=== PATIENT | female | born 1965 | race Caucasian/White ===

== ENCOUNTER 2016-04-24 13:57 | Emergency (ER) ==
[2016-04-24 14:04] VITALS: BP 127/68
--- NOTE | 2016-04-24 14:39 | PROVIDER DOCUMENTATION ---
HPI-EENT General - General Chief Complaint: Earache Stated Complaint: EARACHE Time Seen by Provider: 04/24/16 14:19 Source: patient, family Allergies/Adverse Reactions: Patient Allergies Allergy/AdvReac Type Severity Reaction Status Date / Time acetaminophen [From Percocet] Allergy NAUSEA/VOMI Verified 12/19/15 13:13 TING aspirin Allergy ABDOMINAL Verified 12/19/15 13:13 PAIN codeine Allergy NAUSEA/VOMI Verified 12/19/15 13:13 TING oxycodone HCl * Allergy NAUSEA/VOMI Verified 12/19/15 13:13 [From Percocet] TING Penicillins Allergy NAUSEA/VOMI Verified 12/19/15 13:13 TING propoxyphene napsylate * Allergy NAUSEA/VOMI Verified 12/19/15 13:13 [From Darvocet-N] TING Sulfa (Sulfonamide Allergy RASH Verified 12/19/15 13:13 Antibiotics) tramadol Allergy NAUSEA/VOMI Verified 12/19/15 13:13 TING morphine AdvReac NAUSEA/VOMI Verified 12/19/15 13:13 TING Home Medications: Alprazolam [Xanax] 1 mg PO HS 03/05/15 Hydrocodone/APAP 7.5 mg/325 mg [Powers-7.5] 1 tab PO PRN PRN 03/05/15 Omeprazole 20 mg PO DAILY 03/21/16 - History of Present Illness-EENT General Nature of Presenting Problem: left ear pain x 2 weeks with sorethroat,fatigue, and intermittent fever. Hard of hearing. Denies any otc medications. DRy cough intermittently x 2 weeks nonsmoker. Goes to pain clinic for chronic back pain and scoliosis. EENT Location: reports: ear (L), throat Quality of Pain: reports: aching Severity: reports: moderate Onset/Duration: reports: other (2 weeks) Timing: reports: still present Prearrival Treatment: Initiated no prearrival treatment Locality of Occurance: Home Similar Symptoms Previously?: No Recently seen or treated by another doctor?: No Review of Systems - Adult - REVIEW OF SYSTEMS - ADULT Constitutional: reports: fever, fatique. denies: chills, night sweats Eyes: reports: no symptoms reported Ears, Nose, Mouth & Throat: reports: ear pain, sinus problem, throat pain Cardiovascular: denies: chest pain, irregular heart rate, orthopnea Respiratory: reports: cough. denies: shortness of breath, wheezing Gastrointestinal: reports: no symptoms reported Genitourinary: reports: no symptoms reported Musculoskeletal: reports: no symptoms reported Integumentary: reports: no symptoms reported Neurological: reports: no symptoms reported Psychiatric: reports: no symptoms reported Endocrine: reports: no symptoms reported Hematologic/Lymphatic: reports: no symptoms reported Allergic/Immunologic: reports: no symptoms reported All Other Systems: Reviewed and Negative Past History - Adult - PAST MEDICAL HISTORY-ADULT Review of Records: reports: Nursing Assessment Review, Medications Reviewed Major Childhood Illnesses: reports: denies history Cardiovascular: reports: [place] Respiratory: reports: denies history Gastrointestinal: reports: diverticulosis, GERD Obstetrical/Gynecological: reports: ovarian cysts Genitourinary: reports: denies history Musculoskeletal: reports: chronic pain (due scoliosis) Neurological: reports: denies history Psychiatric: reports: anxiety, depression, suicide attempt Endocrine/Immune: reports: denies history Other Conditions: reports: deaf/hard of hearing Additional History: edin hearing deficit - PRIOR SURGERIES/PROCEDURES Surgical/Procedure History: reports: cholecystectomy, , other (tubes in ears) - IMMUNIZATION STATUS Childhood Immunizations: See Nurse Assessment Flu Vaccine: See Nurse Assessment - FAMILY HISTORY Family History: reviewed, not pertinent - SOCIAL HISTORY Smoking: denies Substance Use: none/never Physical Exam- EENT - Physical Exam EENT Initial Vital Signs Reviewed: Yes General Appearance: appears well, alert, mild distress Eye Exam: bilateral eye: normal inspection, PERRL, EOMI Ear Exam: right ear: TM normal, left ear: other (fluid behind left ear DRUM), bilateral ear: auricle normal, canal normal Nasal Exam: normal inspection Throat Exam: normal mouth inspection, pharynx normal Respiratory: chest non-tender, lungs clear, normal breath sounds, no pleuratic chest pain, no respiratory distress, no accessory muscle use Cardiovascular: normal peripheral pulses, regular rate, rhythm, no edema, no gallop, no JVD, no murmur Abdominal Exam: normal bowel sounds, non tender, soft, no organomegaly, no pulsatile mass Lymphatic: no adenopathy Back Exam: normal inspection, no CVA tenderness, no vertebral tenderness Extremity: normal range of motion, non-tender, normal gait, normal inspection, no pedal edema, no calf tenderness, normal capillary refill, pelvis stable Integumentary: normal color, normal turgor, warm/dry 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, no motor/sensory deficits Psych/Mental Status: AL, normal mood/affect, normal thought content, normal thought process, oriented x 3 Progress - PLAN OF CARE/RESULTS Progress/Plan/Lab Results: Vital Signs - 24 hr 04/24/16 14:01 Temperature 97.8 F Pulse Rate 82 Respiratory 16 Rate Blood Pressure 127/68 O2 Sat by Pulse 98 Oximetry Departure - Departure Time of Disposition Order: 14:38 DIAGNOSIS: Left ear pain Pharyngitis Qualifiers: Pharyngitis/tonsillitis etiology: unspecified etiology Qualified Code(s): J02.9 - Acute pharyngitis, unspecified URI (upper respiratory infection) Qualifiers: URI type: unspecified URI Qualified Code(s): J06.9 - Acute upper respiratory infection, unspecified Disposition: HOME 01 Certified Medical Emergency: Emergent Condition: Stable Additional Instructions: ED Follow Up Instructions: You have been treated by a care provider in the Emergency Department. These instructions are being provided to you so you can have an understanding of how to care for yourself upon discharge. Upon discharge from the Emergency Department, you are responsible for making arrangements for follow-up care by a physician of your choice. Take all prescribed medications as directed. Return to the Emergency Department immediately for any new or worsening symptoms. You may call the Physician Referral phone number at [phone] to obtain a list of Physicians who are taking new patients. Attestation - Scribe Verification/Attestation Scribe:: Roman Wolff Acting as Scribe for:: Charley Nascimento Scribe documention review:: This chart was documented by a scribe and accurately reflects the service the provider performed and the decisions made by the provider.
[2016-04-24] MEDS ORDERED: DECADRON IM ONE (15:01)
== END 2016-04-24 15:24 | disposition home or self-care (01) ==
LOC: P.ED 13:57
DX: J06.9 Acute upper respiratory infection, unspecified (principal); J02.9 Acute pharyngitis, unspecified; H92.02 Otalgia, left ear; R53.83 Other fatigue; R50.9 Fever, unspecified; R05 Cough; I25.2 Old myocardial infarction; K21.9 Gastro-esophageal reflux disease without esophagitis; G89.29 Other chronic pain; H91.90 Unspecified hearing loss, unspecified ear; F41.9 Anxiety disorder, unspecified; Z79.899 Other long term (current) drug therapy
CPT/HCPCS: 99281; J1100

== ENCOUNTER 2016-06-29 13:37 | Emergency (ER) | payer OTHER ==
[2016-06-29 13:58] VITALS: BP 137/83
[2016-06-29] MEDS ORDERED: DECADRON IM ONE (14:55)
[2016-06-29] MEDS ORDERED: CLINDAMYCIN IM ONE (14:55)
--- NOTE | 2016-06-29 14:57 | PROVIDER DOCUMENTATION ---
HPI-EENT General <PurnimaDanna nugent - Last Filed: 06/29/16 14:54> - General Source: patient - History of Present Illness-EENT General EENT Location: reports: mouth, facial, dental Quality of Pain: reports: aching Severity: reports: mild Onset/Duration: reports: 2 days ago Timing: reports: still present, intermittent Prearrival Treatment: Initiated prescription meds Associated Symptoms: reports: facial pain/swelling (swelling to R lower jaw), tooth pain. denies: change in hearing, cough, drooling, ear drainage, fever, malaise, nasal congestion/drainage, poor fluid intake, poor solids intake, sinus infection, sore throat, voice change Locality of Occurance: Home Similar Symptoms Previously?: Yes Recently seen or treated by another doctor?: No - Throat/Dental Throat/Dental Problem Symptoms: reports: toothache (R), swelling of jaw/face (r) . denies: jaw pain, sore throat, trouble breathing, throat swelling, unable to swallow Throat/Dental Problem Context: reports: dental decay, fractured tooth Recently seen a dentist or have an appointment?: Yes (in 2 days ) <Yissel Butler - Last Filed: 06/29/16 15:06> - General Chief Complaint: Toothache Stated Complaint: FACIAL SWELLING Time Seen by Provider: 06/29/16 14:54 Allergies/Adverse Reactions: Patient Allergies Allergy/AdvReac Type Severity Reaction Status Date / Time acetaminophen [From Percocet] Allergy NAUSEA/VOMI Verified 05/11/16 22:40 TING aspirin Allergy ABDOMINAL Verified 05/11/16 22:40 PAIN codeine Allergy NAUSEA/VOMI Verified 05/11/16 22:40 TING oxycodone HCl * Allergy NAUSEA/VOMI Verified 05/11/16 22:40 [From Percocet] TING Penicillins Allergy NAUSEA/VOMI Verified 05/11/16 22:40 TING propoxyphene napsylate * Allergy NAUSEA/VOMI Verified 05/11/16 22:40 [From Darvocet-N] TING Sulfa (Sulfonamide Allergy RASH Verified 05/11/16 22:40 Antibiotics) tramadol Allergy NAUSEA/VOMI Verified 05/11/16 22:40 TING morphine AdvReac NAUSEA/VOMI Verified 05/11/16 22:40 TING Home Medications: Home Medication List Medication Instructions Recorded Confirmed Last Taken Type Cetirizine [Zyrtec] 10 mg PO DAILY #30 tablet 05/27/16 06/29/16 Rx Duloxetine [Cymbalta] 30 mg PO QAM #30 capsule 05/27/16 06/29/16 Rx Omeprazole 40 mg PO DAILY #0 05/27/16 05/23/16 06/29/16 Rx Prazosin [Minipress] 1 mg PO QHS #30 capsule 05/27/16 06/29/16 Rx Risperidone [Risperdal] 1 mg PO BID 30 Days 05/27/16 06/29/16 Rx Cephalexin [Keflex] 500 mg PO BID #20 capsule 06/29/16 Unknown Rx Prednisone [Deltasone] 20 mg PO DIRECTED #12 tablet 06/29/16 Unknown Rx - History of Present Illness-EENT General Nature of Presenting Problem: Pt is 50 y/o F presents to the ED with R lower dental abscess. Pt states having the abscess 6 weeks ago. Pt denies F. Pt states the abscess came back 2 days ago. Pt states has a dentist ginny in 2 days. (Yissel Butler) Review of Systems - Adult - REVIEW OF SYSTEMS - ADULT Constitutional: reports: no symptoms reported Eyes: reports: no symptoms reported Ears, Nose, Mouth & Throat: reports: mouth/dental pain (R lower), mouth swelling (R lower jaw). denies: ear pain, nose pain, throat pain Cardiovascular: reports: no symptoms reported Respiratory: reports: no symptoms reported Gastrointestinal: reports: no symptoms reported Genitourinary: reports: no symptoms reported Musculoskeletal: reports: no symptoms reported Integumentary: reports: no symptoms reported Neurological: reports: no symptoms reported Psychiatric: reports: no symptoms reported Endocrine: reports: no symptoms reported Hematologic/Lymphatic: reports: no symptoms reported Allergic/Immunologic: reports: no symptoms reported All Other Systems: Reviewed and Negative <Yissel Butler - Last Filed: 06/29/16 15:06> Past History - Adult - PAST MEDICAL HISTORY-ADULT Major Childhood Illnesses: reports: denies history Cardiovascular: reports: [place] Respiratory: reports: denies history Gastrointestinal: reports: diverticulosis, GERD Obstetrical/Gynecological: reports: ovarian cysts Genitourinary: reports: other (frequent UTI's) Musculoskeletal: reports: chronic pain (due scoliosis) Neurological: reports: denies history Psychiatric: reports: anxiety, depression, suicide attempt Endocrine/Immune: reports: denies history Other Conditions: reports: deaf/hard of hearing Additional History: edin hearing deficit - PRIOR SURGERIES/PROCEDURES Surgical/Procedure History: reports: cholecystectomy, , other (tubes in ears) - IMMUNIZATION STATUS Childhood Immunizations: See Nurse Assessment Flu Vaccine: See Nurse Assessment - FAMILY HISTORY Family History: reviewed, not pertinent <Danna Cortes - Last Filed: 06/29/16 14:54> - PAST MEDICAL HISTORY-ADULT Review of Records: reports: Nursing Assessment Review, Medications Reviewed, Social history reviewed & non-contributory. Major Childhood Illnesses: reports: denies history Cardiovascular: reports: HTN Respiratory: reports: denies history Gastrointestinal: reports: denies history Obstetrical/Gynecological: reports: denies history Genitourinary: reports: denies history Musculoskeletal: reports: denies history Neurological: reports: denies history Endocrine/Immune: reports: denies history Other Conditions: reports: denies history - PRIOR SURGERIES/PROCEDURES Surgical/Procedure History: reports: cholecystectomy, , tonsillectomy - IMMUNIZATION STATUS Childhood Immunizations: See Nurse Assessment Flu Vaccine: See Nurse Assessment - FAMILY HISTORY Family History: reviewed, not pertinent - SOCIAL HISTORY Smoking: denies Substance Use: denies Living Situation: family <Yissel Butler - Last Filed: 06/29/16 15:06> Physical Exam- EENT - Physical Exam EENT Initial Vital Signs Reviewed: Yes General Appearance: appears well, alert, no apparent distress Eye Exam: bilateral eye: normal inspection, PERRL, EOMI Ear Exam: bilateral ear: auricle normal, canal normal, TM normal Nasal Exam: normal inspection Throat Exam: dental tenderness (R lower), other (R lower swelling) Neck: non-tender, full range of motion, supple, lymphadenopathy Respiratory: chest non-tender, lungs clear, normal breath sounds, no pleuratic chest pain, no respiratory distress, no accessory muscle use Cardiovascular: normal peripheral pulses, regular rate, rhythm, no edema, no gallop, no JVD, no murmur Abdominal Exam: normal bowel sounds, non tender, soft, no organomegaly, no pulsatile mass Lymphatic: no adenopathy Back Exam: normal inspection, no CVA tenderness, no vertebral tenderness Extremity: normal range of motion, non-tender, normal gait, normal inspection, no pedal edema, no calf tenderness, normal capillary refill Integumentary: normal color, normal turgor, warm/dry Neurologic: grossly normal Psych/Mental Status: normal mood/affect, oriented x 3 <Yissel Butler - Last Filed: 06/29/16 15:06> Progress <Danna Cortes - Last Filed: 06/29/16 14:54> <Yissel Butler - Last Filed: 06/29/16 15:06> - PLAN OF CARE/RESULTS Progress/Plan/Lab Results: Orders Category Date Time Status Clindamycin Med 06/29/16 14:55 Discontinued 600 mg IM NOW ONE Dexamethasone [Decadron] Med 06/29/16 14:55 Discontinued 4 mg IM NOW ONE Vital Signs - 24 hr 06/29/16 13:53 Temperature 98.3 F Pulse Rate 95 H Respiratory 20 Rate Blood Pressure 137/83 O2 Sat by Pulse 98 Oximetry (Yissel Butler) Departure - Departure Time of Disposition Order: 14:56 Certified Medical Emergency: Emergent <Danna Cortes - Last Filed: 06/29/16 14:54> - Departure Time of Disposition Order: 15:06 Certified Medical Emergency: Emergent <Yissel Butler - Last Filed: 06/29/16 15:06> - Departure DIAGNOSIS: Dental abscess Disposition: HOME 01 Condition: Stable Additional Instructions: Follow up with the dentist as planned ED Follow Up Instructions: You have been treated by a care provider in the Emergency Department. These instructions are being provided to you so you can have an understanding of how to care for yourself upon discharge. Upon discharge from the Emergency Department, you are responsible for making arrangements for follow-up care by a physician of your choice. Take all prescribed medications as directed. Return to the Emergency Department immediately for any new or worsening symptoms. You may call the Physician Referral phone number at [phone] to obtain a list of Physicians who are taking new patients. Prescriptions: Prednisone [Deltasone] 20 mg PO DIRECTED #12 tablet Cephalexin [Keflex] 500 mg PO BID #20 capsule Referrals: Krishna Estrada MD [Primary Care Provider] - Attestation - Scribe Verification/Attestation Scribe:: Yissel Butler Acting as Scribe for:: Danna Cortes Scribe documention review:: This chart was documented by a scribe and accurately reflects the service the provider performed and the decisions made by the provider. <Yissel Butler - Last Filed: 06/29/16 15:06> Physician Attestation
== END 2016-06-29 15:40 | disposition home or self-care (01) ==
LOC: P.ED 13:37
DX: K04.7 Periapical abscess without sinus (principal); K08.89 Other specified disorders of teeth and supporting structures; R22.0 Localized swelling, mass and lump, head; K02.9 Dental caries, unspecified; S02.5XXA Fracture of tooth (traumatic), initial encounter for closed fracture; I10 Essential (primary) hypertension; I25.2 Old myocardial infarction; K21.9 Gastro-esophageal reflux disease without esophagitis; G89.29 Other chronic pain; H91.90 Unspecified hearing loss, unspecified ear; Z87.42 Personal history of other diseases of the female genital tract; Z87.440 Personal history of urinary (tract) infections
CPT/HCPCS: 99281; J1100; S0077

== ENCOUNTER 2018-09-17 18:07 | Inpatient (IN) ==
[2018-09-17] MEDS ORDERED: ASPIRIN PO ONE (18:10)
--- NOTE | 2018-09-17 18:22 | EKG Report ---
Test Performed on : 09/17/2018 6:08:33 PM Test Reason : cp Blood Pressure : / mmHG Vent. Rate : 078 BPM Atrial Rate : 078 BPM P-R Int : 142 ms QRS Dur : 076 ms QT Int : 392 ms P-R-T Axes : 035 -11 009 degrees QTc Int : 446 ms Normal sinus rhythm. with sinus arrhythmia. Normal ECG When compared with ECG of 07-JUN-2018 16:46, No significant change was found Unconfirmed Result
[2018-09-17 18:34] LABS: BASO# 0.03 X1000 (0.0-0.2); BASO% 0.4 % (0.0-0.8); EOS# 0.17 X1000 (0.0-0.7); HEMATOCRIT 38.9 % (37.0-47.0); HEMOGLOBIN 13.1 g/dL (12.0-16.0); IMM GRAN# 0.02 X1000 (0.0-0.04); IMM GRAN% 0.2 % (0.0-0.5); LYMPH# 2.69 X1000 (1.2-3.4); LYMPH% 31.4 % (20.5-51.1); MCH 28.4 PG (27-31); MCHC 33.7 g/dL (33-37); MCV 84.2 FL (81-99); NEUT# 5.06 X1000 (1.4-6.5); PLT 304 X1000 (130-400); RBC 4.62 XMIL (4.2-5.4); RDW 13.9 % (11.5-14.5); WBC 8.57 X1000 (4.8-10.8)
[2018-09-17 18:38] LABS: INR 0.99; PROTIME 13.6 Seconds (11.0-16.0); PTT 30.3 Seconds (22.3-41.8)
[2018-09-17 18:56] LABS: AGAP 13; ALBUMIN 4.2 g/dL (3.5-5.0); ALKALINE PHOSPHATASE 116 U/L (32-104); BUN 10 mg/dL (8-22); CALCIUM 8.8 mg/dL (8.8-10.2); CHLORIDE 105 mmol/L (98-107); CK PROFILE 94 U/L (24-173); COSMO 281; CREATININE 0.7 mg/dL (0.5-0.9); ESTIMATED GFR > 60; GLUCOSE 120 mg/dL (70-104); GOT 18 U/L (10-30); GPT 18 U/L (10-36); POTASSIUM 3.9 mmol/L (3.5-5.1); SODIUM 141 mmol/L (136-145); TCO2 23 mmol/L (25-35); TOTAL PROTEIN 6.8 g/dL (6.3-8.3)
--- NOTE | 2018-09-17 19:09 | Diag Imaging Result Doc PS360 ---
EXAM: CHEST-2 VIEWS HISTORY: cp TECHNIQUE: Chest two views COMPARISON: 07/13/2018 FINDINGS: The lungs are well expanded. The heart is not enlarged. The vessels are not distended. There are no infiltrates. No pleural effusions. IMPRESSION: No acute abnormality. Electronically signed by Regis Delong 09/17/2018 7:07 PM
--- NOTE | 2018-09-17 19:19 | PROVIDER DOCUMENTATION ---
HPI-Chest Pain - General Chief Complaint: Chest Pain Stated Complaint: CHEST PAIN Time Seen by Provider: 09/17/18 19:00 Source: patient Allergies/Adverse Reactions: Patient Allergies Allergy/AdvReac Type Severity Reaction Status Date / Time acetaminophen [From Percocet] Allergy NAUSEA/VOMI Verified 08/01/18 13:37 TING aspirin Allergy ABDOMINAL Verified 08/01/18 13:37 PAIN codeine Allergy NAUSEA/VOMI Verified 08/01/18 13:37 TING Iodinated Contrast- Oral and Allergy RASH Verified 08/01/18 13:37 IV Dye [IV Dye] oxycodone HCl * Allergy NAUSEA/VOMI Verified 08/01/18 13:37 [From Percocet] TING Penicillins Allergy NAUSEA/VOMI Verified 08/01/18 13:37 TING propoxyphene napsylate * Allergy NAUSEA/VOMI Verified 08/01/18 13:37 [From Darvocet-N] TING Sulfa (Sulfonamide Allergy RASH Verified 08/01/18 13:37 Antibiotics) tramadol Allergy NAUSEA/VOMI Verified 08/01/18 13:37 TING morphine AdvReac NAUSEA/VOMI Verified 08/01/18 13:37 TING Home Medications: Home Medication List Medication Instructions Recorded Confirmed Last Taken Type Hydrocodone/Acetaminophen 7.5 mg PO DIRECTED 03/15/17 08/01/18 4 Days Ago History [Hydrocodone-Acetamin 7.5-325] ~07/28/18 Albuterol Sulfate Inhaler 2 puff INH Q6H PRN PRN #1 inhaler 07/13/18 08/01/18 2 Days Ago Rx [Ventolin Hfa] ~07/30/18 Albuterol [Albuterol Neb] 2.5 mg INH Q4H PRN PRN #1 b 07/13/18 08/01/18 2 Days A go Rx ~07/30/18 Fluconazole [Diflucan] 150 mg PO Q72H #3 tab 08/01/18 Unknown Rx Nitrofurantoin Macrocrystal 50 mg PO Q6H 08/01/18 08/01/18 08/01/18 History [Nitrofurantoin] Nitrofurantoin Monohyd/M-Cryst 50 mg PO Q6H 08/01/18 08/01/18 08/01/18 History [Macrobid 100 mg Capsule] Prednisone 20 mg PO DIRECTED 08/01/18 08/01/18 08/01/18 History - History of Present Illness-CP Nature of Presenting Problem: 52 YOF PRESENTS WITH C/O CP ON THE LEFT THAT IS SHARP. SHE REPORTS IT RADIATES DOWN L ARM. L CHEST IS TENDER TO PALPATION. SHE REPORTS THIS BEGAN JUST POST MANAGER WHEN INCREASED STRESS OCCURED. Location: reports: substernal Chest Pain Radiation: reports: arms Quality of Pain: reports: sharp Severity in ED: mild Onset/Duration: just prior to arrival Timing: gone now Context/Activities at Onset: reports: other (STRESS) Modifying Factors: improves with: nothing Associated Symptoms: reports: denies symptoms Nitro Today/Relief: 0.4 mg x 3, provided by EMS Aspirin Treatment Today: 325 mg x 1, provided by EMS Prior Chest Pain/Cardiac Workup: reports: no prior chest pain, no prior cardiac workup Similar Symptoms Previously?: No Recently Seen Here or By Another Healthcare Provider: No Review of Systems - Adult - REVIEW OF SYSTEMS - ADULT Constitutional: reports: no symptoms reported. denies: see HPI, chills, fever, fatique, night sweats, weight gain, weight loss, other Eyes: reports: no symptoms reported. denies: see HPI, discharge, dry eyes, decreased vision, blurred vision, double vision, eye pain, redness, other Ears, Nose, Mouth & Throat: reports: no symptoms reported. denies: see HPI, ear discharge, ear pain, hearing loss, tinnitus, epistaxis, sinus problem, nose pain, loose teeth, mouth/dental pain, mouth swelling, hoarseness, throat pain, throat swelling, other Cardiovascular: reports: chest pain. denies: no symptoms reported, see HPI, edema, heart murmur, irregular heart rate, orthopnea, palpitations, poor circulation, PND, syncope, other Respiratory: reports: no symptoms reported. denies: see HPI, chronic cough, cough, dyspnea on exertion, excessive sputum production, hemoptysis, pleurisy, shortness of breath, wheezing, other Gastrointestinal: reports: no symptoms reported. denies: see HPI, abdominal pain, hematemesis, constipation, diarrhea, difficulty swallowing, frequent heartburn, nausea, poor appetite, rectal bleeding, vomiting, other Genitourinary: reports: no symptoms reported. denies: see HPI, dysuria, discharge, frequency, flank pain, frequent UTI's, hematuria, hesitency, incontinence, urinary retention, urgency, other Musculoskeletal: reports: no symptoms reported. denies: see HPI, bone pain, back pain, frequent leg cramps, joint pain, joint swelling, muscle aches, muscle weakness, neck pain, other Integumentary: reports: no symptoms reported. denies: see HPI, hives, hair loss, itching, mole changes, nail changes, rash, skin sores/ulcer, skin thickening, other Neurological: reports: no symptoms reported. denies: see HPI, ataxia, dizziness/vertigo, headache/migraines, loss of balance, numbness, paresthesia, seizure, slurred speech, syncope, tremors, other Psychiatric: reports: anxiety. denies: no symptoms reported, see HPI, anti- depressant use, alcohol/drug dependence, depression, emotional problems, insomnia, panic attacks, suicidal thoughts, other Endocrine: reports: no symptoms reported. denies: see HPI, change in skin pigment, excessive sweating, goiter, cold intolerance, heat intolerance, increased hunger, increased thirst, polyuria, other Hematologic/Lymphatic: reports: no symptoms reported. denies: see HPI, blood clots, easy bruising, low blood count, lymphedema, prolonged bleeding, swollen lymph nodes, transfusions, other Allergic/Immunologic: reports: no symptoms reported. denies: see HPI, allergic reactions, allergic rhinitis, asthma, eczema, food allergy, frequent infections, hay fever, hives, positive PPD, urticaria, other Past History - Adult - PAST MEDICAL HISTORY-ADULT Review of Records: reports: Old Records Reviewed, Medications Reviewed, Social history reviewed & non-contributory. Major Childhood Illnesses: reports: denies history Cardiovascular: reports: HTN Respiratory: reports: denies history Gastrointestinal: reports: denies history Obstetrical/Gynecological: reports: ectopic , ovarian cysts (pt reports she has 5 ovarian cysts on the right ovary) Genitourinary: reports: chronic UTI's (pt reports she has 12-15 UTI's per year) Musculoskeletal: reports: chronic pain (under the care of Dr. Barcenas pain service), other (scoliosis) Neurological: reports: denies history, other (scoliosis) Psychiatric: reports: anxiety, depression, suicide attempt, other (OCD) Endocrine/Immune: reports: denies history Other Conditions: reports: denies history, other (L hearing impairment) Additional History: edin hearing deficit - PRIOR SURGERIES/PROCEDURES Surgical/Procedure History: reports: cholecystectomy, , tonsillectomy, other (tubes in ears; lysis of adhesions) - IMMUNIZATION STATUS Childhood Immunizations: See Nurse Assessment Flu Vaccine: See Nurse Assessment - FAMILY HISTORY Family History: reviewed, not pertinent Physical Exam-General - PHYSICAL EXAM-ADULT Initial Vital Signs Reviewed: Yes - CONSTITUTIONAL General Appearance: appears well, alert, no apparent distress - EYES Eyes: PERRL/EOMI - HEAD, EARS, NOSE, MOUTH & THROAT HENMT: normocephalic/atraumatic, moist mucous membranes, normal ENT inspection - NECK Neck: non-tender, full range of motion, supple - RESPIRATORY Respiratory: lungs clear, normal breath sounds, no respiratory distress, no accessory muscle use. negative: chest non-tender (L CHEST TENDER) - CARDIOVASCULAR Cardiovascular: normal peripheral pulses, regular rate, rhythm, no edema, no gallop, no JVD, no murmur - GASTROINTESTINAL (ABDOMEN) Abdominal Exam: normal bowel sounds, non tender, soft - LYMPHATIC Lymphatic: no adenopathy - MUSCULOSKELETAL Back Exam: normal inspection, no CVA tenderness, no vertebral tenderness Extremity: normal range of motion, non-tender, normal gait - SKIN Integumentary: normal color, warm/dry - NEUROLOGIC Neurologic: grossly normal - PSYCHIATRIC Psych/Mental Status: normal mood/affect, oriented x 3 - HEART Score HEART Score: History: Slightly Suspicious HEART Score: ECG: Normal HEART Score: Age: 45-65 Years HEART Score: Risk Factors for Atherosclerotic Disease: 1 or 2 Risk Factors HEART Score: Troponin: < or = Normal Limit Total HEART Score:: 2 Progress - PLAN OF CARE/RESULTS Progress/Plan/Lab Results: Vital Signs - 8 hr 09/17/18 18:11 09/17/18 19:39 09/17/18 20:56 Pulse Rate 91 H 78 82 Respiratory Rate 18 20 20 Blood Pressure 113/75 100/71 116/70 O2 Sat by Pulse Oximetry 96 09/17/18 21:02 Pulse Rate Respiratory Rate Blood Pressure O2 Sat by Pulse Oximetry 96 Laboratory Results - last 24 hr 09/17/18 09/17/18 09/17/18 18:14 18:14 18:14 WBC 8.57 RBC 4.62 Hgb 13.1 Hct 38.9 MCV 84.2 MCH 28.4 MCHC 33.7 RDW Std Deviation 13.9 Plt Count 304 MPV 10.0 Immature Gran % (Auto) 0.2 Neut % (Auto) 59.0 Lymph % (Auto) 31.4 Dubois % (Auto) 7.0 Eos % (Auto) 2.0 Baso % (Auto) 0.4 Immature Gran # (Auto) 0.02 Neut # (Auto) 5.06 Lymph # (Auto) 2.69 Dubois # (Auto) 0.60 H Eos # (Auto) 0.17 Baso # (Auto) 0.03 PT INR PTT (Actin FS) Sodium 141 Potassium 3.9 Chloride 105 Carbon Dioxide 23 L Anion Gap 13 BUN 10 Creatinine 0.7 Estimated GFR/1.73 m2 > 60 BUN/Creatinine Ratio 14 Glucose 120 H Calculated Osmolality 281 Calcium 8.8 Total Bilirubin 0.30 AST 18 ALT 18 Alkaline Phosphatase 116 H Creatine Kinase 94 Troponin T [id number] Pept 13 Total Protein 6.8 Albumin 4.2 Globulin 3.0 Albumin/Globulin Ratio 2.0 Urine Source Urine Color Urine Clarity Urine pH Ur Specific [place] Urine Protein Urine Ketones Urine Blood Urine Nitrite Urine Bilirubin Urine Urobilinogen Urine WBC Urine Glucose 09/17/18 09/17/18 09/17/18 18:14 18:14 18:40 WBC RBC Hgb Hct MCV MCH MCHC RDW Std Deviation Plt Count MPV Immature Gran % (Auto) Neut % (Auto) Lymph % (Auto) Dubois % (Auto) Eos % (Auto) Baso % (Auto) Immature Gran # (Auto) Neut # (Auto) Lymph # (Auto) [place] # (Auto) Eos # (Auto) Baso # (Auto) PT 13.6 INR 0.99 PTT (Actin FS) 30.3 Sodium Potassium Chloride Carbon Dioxide Anion Gap BUN Creatinine Estimated GFR/1.73 m2 BUN/Creatinine Ratio Glucose Calculated Osmolality Calcium Total Bilirubin AST ALT Alkaline Phosphatase Creatine Kinase Troponin T < 0.010 [id number] Pept Total Protein Albumin Globulin Albumin/Globulin Ratio Urine Source Cancelled Urine Color Cancelled Urine Clarity Cancelled Urine pH Cancelled Ur Specific [place] Cancelled Urine Protein Cancelled Urine Ketones Cancelled Urine Blood Cancelled Urine Nitrite Cancelled Urine Bilirubin Cancelled Urine Urobilinogen Cancelled Urine WBC Cancelled Urine Glucose Cancelled 09/17/18 09/17/18 18:40 20:38 WBC RBC Hgb Hct MCV MCH MCHC RDW Std Deviation Plt Count MPV Immature Gran % (Auto) Neut % (Auto) Lymph % (Auto) Dubois % (Auto) Eos % (Auto) Baso % (Auto) Immature Gran # (Auto) Neut # (Auto) Lymph # (Auto) [place] # (Auto) Eos # (Auto) Baso # (Auto) PT INR PTT (Actin FS) Sodium Potassium Chloride Carbon Dioxide Anion Gap BUN Creatinine Estimated GFR/1.73 m2 BUN/Creatinine Ratio Glucose Calculated Osmolality Calcium Total Bilirubin AST ALT Alkaline Phosphatase Creatine Kinase Troponin T < 0.010 Sel-[id number]-Qzvclctspdf Pept Total Protein Albumin Globulin Albumin/Globulin Ratio Urine Source CLEAN CATCH Urine Color YELLOW Urine Clarity SLIGHTLY CLOUDY A Urine pH 8.0 Ur Specific [place] 1.005 Urine Protein NEGATIVE Urine Ketones TRACE Urine Blood NEGATIVE Urine Nitrite NEGATIVE Urine Bilirubin NEGATIVE Urine Urobilinogen NORMAL Urine WBC TRACE A Urine Glucose NEGATIVE Orders Category Date Time Status Admit - [facility] Routine AdmDCTranf 09/17/18 20:56 Active Activity - Up Ad Yasmine ORDERED Care 09/17/18 20:56 Active Cardiac Monitoring DIRECTED Care 09/17/18 18:10 Active Neurological Check PRN Care 09/17/18 20:56 Active Oxygen Therapy- ED Nursing DIRECTED Care 09/17/18 18:10 Active Saline Loc DIRECTED Care 09/17/18 20:56 Active Saline Loc NOW Care 09/17/18 18:10 Active Vital Signs Order ROUTINE Care 09/17/18 20:56 Active Regular Diet Diet 09/17/18 20:57 Active CHEST-2 VIEWS [RAD] Stat Exams 09/17/18 18:10 Completed CBC WITH ELECTRONIC DIFF [HEME] Stat Lab 09/17/18 18:14 Completed CK PROFILE [SP CHEM] Stat Lab 09/17/18 18:14 Completed COMPREHENSIVE METABOLIC PANEL [CHEM] Stat Lab 09/17/18 18:14 Completed PRO B-NATRIURETIC PEPTIDE Stat Lab 09/17/18 18:14 Completed PROTIME WITH INR [COAG] Stat Lab 09/17/18 18:14 Completed PTT [COAG] Stat Lab 09/17/18 18:14 Completed TROPONIN T Stat Lab 09/17/18 18:14 Completed TROPONIN T Stat Lab 09/17/18 20:38 Completed UA NIMS W/REFLEX CULT PL [URINALYSIS] Stat Lab 09/17/18 18:40 Results Aspirin Med 09/17/18 18:10 Discontinued 325 mg PO NOW ONE CP/SOB/Palp >45 yrs of Age Stat Oth 09/17/18 18:10 Ordered EKG [EKG] Stat Ther 09/17/18 18:10 Draft Echo Spec/Color Doppler Routine Ther 09/17/18 20:57 Ordered Transfer/Admit Order [TRANSFER] Routine Transfer 09/17/18 20:57 Ordered Result Diagrams: 09/17/18 18:14 09/17/18 18:14 - EKG 1 Time of EKG reading by physician:: 18:09 EKG Read and Signed by:: Garry Wolff EKG Interpretation (*Must complete 3 of following elements*): Normal Rate: 78 Rhythm: NSR WITH SINUS ARRYTHMIA [place]: normal QRS: normal OK Interval: normal ST Wave: normal - XRAY 1 XRAY Study: Chest Impression: See EMR Report (FINDINGS: The lungs are well expanded. The heart is not enlarged. The vessels are not distended. There are no infiltrates. No pleural effusions. IMPRESSION: No acute abnormality.) Departure - Departure Date of Disposition Decision: 09/17/18 Time of Disposition Decision: 21:55 DIAGNOSIS: Chest pain Disposition: ADMITTED INPATIENT 09 Certified Medical Emergency: Emergent Condition: Stable - Critical Care Note This patient required my direct & personal management of CC.: No Attestation - Physician/ ELIUD Attestation Patient care was provided by Advanced Practice Provider:: Yes Advanced Practice Provider:: Brooklynn Soto Advanced Practice Provider documentation review:: The Mid-level provider documentation, treatment plan and medical decision making was reviewed by the physician who agrees with all treatment and medical decision making by the MLP. The physician spent face to face time with patient:: No Advanced Practice Provider documentation review:: Supervising physician onsite and consulted in the evaluation and care of this patient. The physician did not have a face to face encounter with the patient.
[2018-09-17 21:50] LABS: CLARITY SLIGHTLY CLOUDY (CLEAR); COLOR YELLOW; URINE SOURCE CLEAN CATCH
[2018-09-17 21:51] LABS: BILIRUBIN URINE NEGATIVE (NEGATIVE); BLOOD URINE NEGATIVE (NEGATIVE); GLUCOSE URINE NEGATIVE (NEGATIVE); KETONE URINE TRACE mg/dL (NEGATIVE); LEUKOCYTES URINE TRACE (NEGATIVE); NITRITE URINE NEGATIVE (NEGATIVE); PROTEIN URINE NEGATIVE (NEGATIVE); SP GRAVITY URINE 1.005; UROBILINOGEN URINE NORMAL
[2018-09-17 22:13] LABS: URINE BACTERIA NEGATIVE /HFP; URINE CAST NONE SEEN /LPF; URINE CRYSTAL NONE SEEN /HPF; URINE EPITHELIAL CELLS <10 /HPF (<10); URINE RBC <10 /HPF (<10); URINE WBC <10 /HPF (<10); URINE YEAST NONE SEEN /HPF
[2018-09-17] MEDS ORDERED: NITROGLYCERIN SL PRN (23:14)
[2018-09-17] MEDS ORDERED: OFIRMEV 1000 MG/ISOTONIC SOLN 1,000 MG/100 ML BOTTLE IV PRN (23:15)
[2018-09-18] MEDS ORDERED: NORCO-7.5 PO PRN (08:29)
[2018-09-18] MEDS ORDERED: FLEXERIL PO PRN (08:29)
[2018-09-18] MEDS: NEXIUM PO SCH (08:46)
[2018-09-18] MEDS ORDERED: DILAUDID IV PRN (10:55)
--- NOTE | 2018-09-18 12:10 | Diag Imaging Result Doc PS360 ---
EXAM: CT THORAX W/O CONTRAST INDICATION: chest pain TECHNIQUE: This exam was performed using automated exposure control, adjustment of mA or kV according to patient size, and/or use of iterative reconstruction technique. COMPARISON: None. FINDINGS: The lungs are clear. There are no airspace consolidations. There is no pleural fluid collection and no pneumothorax. There is no cardiomegaly. There is no evidence of significant mediastinal or hilar lymphadenopathy. There are no abnormal pericardial fluid collections. Limited views of the upper abdomen are essentially unremarkable. There is thoracolumbar scoliosis and degenerative changes. The bony structures are grossly intact. IMPRESSION: No evidence of acute pathology by CT. Electronically signed by Sal Lazaro 09/18/2018 12:08 PM
--- NOTE | 2018-09-18 12:43 | EKG Report ---
Test Performed on : 09/18/2018 07:22:43 AM Test Reason : chest pain Blood Pressure : / mmHG Vent. Rate : 052 BPM Atrial Rate : 052 BPM P-R Int : 142 ms QRS Dur : 076 ms QT Int : 476 ms P-R-T Axes : 011 -02 018 degrees QTc Int : 442 ms Sinus bradycardia. with premature supraventricular complexes. Otherwise normal ECG When compared with ECG of 17-SEP-2018 18:08, (Unconfirmed) premature supraventricular complexes. are now present Vent. rate has decreased BY 26 BPM Unconfirmed Result
--- NOTE | 2018-09-18 15:33 | HISTORY AND PHYSICAL ---
PRIMARY CARE PHYSICIAN: Dr. Estrada. CHIEF COMPLAINT: Chest pain. HISTORY OF PRESENTING ILLNESS: This is a 52-year-old female who presents to [facility] ER with complaints of chest pain at the top of her left breast that began radiating down her left arm with numbness to her fingers. States that she has had increased stress with her children through DHR issues and has been arguing with her significant other recently and states that the pain is better today in her chest. Her workup showed 4 sets of cardiac enzymes that were negative and she was admitted for further evaluation and treatment. PAST MEDICAL HISTORY: Of hypertension, ovarian cyst, chronic UTIs, chronic pain, scoliosis, anxiety, depression, OCD and a left hearing impairment. PAST SURGICAL HISTORY: Of a cholecystectomy, , tonsillectomy, tubes to her ears and lysis of adhesions. FAMILY HISTORY: Reviewed and noncontributory. SOCIAL HISTORY: She currently lives with family. Denies any current tobacco use is a former smoker. Drinks alcohol occasionally and denies any illicit drug use. ALLERGIES: To acetaminophen, aspirin, codeine, oral and IV dye, oxycodone, penicillin, propoxyphene, sulfa, tramadol and morphine. HOME MEDICATIONS: She takes Flexeril 10 mg p.o. q.8 to 12 hours p.r.n., Nexium 40 mg p.o. daily, hydrocodone 7.5 p.o. as directed. LABORATORY DATA: Showed a white blood cell count of 8.57, hemoglobin 13.1, hematocrit 38.9, platelets 304,000. PT and INR of 13.6 and 0.99. Sodium of 141, potassium 3.9, chloride 105, CO2 23, BUN of 10, creatinine 0.7, glucose 120. Troponins x4 have been negative. ProBNP of 13. Urinalysis was negative. Chest x-ray showed no acute abnormality. EKG showed normal sinus rhythm at 78. REVIEW OF SYSTEMS: She denied any fever, chills, blurred vision, dizziness. She was positive for left-sided chest pain that radiated to her left arm with numbness to her fingers. Denied any shortness of breath, abdominal pain, constipation, diarrhea, burning or hurting with urination. PHYSICAL EXAMINATION: On arrival she had a pulse of 91, respirations 18, blood pressure 113/75, saturating 96% on room air. GENERAL: This is a 52-year-old female who is sitting up in the bed and answers questions appropriately. HEENT: Normocephalic, atraumatic. Normal ENT inspection. Oropharynx and nares are clear. Pupils are equal, round, and reactive to light and accommodation. Extraocular movements are intact. NECK: Normal inspection, normal range of motion. LUNGS: Clear to auscultation bilaterally with equal lung expansion and chest wall movement. HEART: With regular rate and rhythm. No murmurs, rubs, or gallops. ABDOMEN: Soft, nontender, nondistended. Bowel sounds are present x4 quadrants. MUSCULOSKELETAL: She has 5/5 strength x4 extremities. NEUROLOGICAL: The cranial nerves 2-12 appear grossly intact. ASSESSMENT: 1. Chest pain. 2. Anxiety with increased stress. 3. History of hypertension. PLAN: We will admit to the medical unit at [facility], place on telemetry. Will do a healthy heart diet. We will check an echocardiogram. We will consult Cardiology, do a CT of the thorax without contrast, place on Dilaudid 0.5 mg IV q.3 hours p.r.n. and continue home medications as previously identified. Further orders after seen by attending and by [employer] consultant. Dictated by ELENI Kruger for Landon Mack MD Addendum: Patient seen and examined by myself. Agree with ELENI note. It reflects my assessment and plan. Patient is being admitted to hospital for chest pain that is somewhat atypical. Will check troponins, echocardiogram and consult Cardiology if needed. cc: ELENI Kruger MD Dr. Awoniyi MTDD
[2018-09-18] MEDS ORDERED: ZOFRAN IV PRN (20:23)
[2018-09-19 07:34] LABS: BASO# 0.02 X1000 (0.0-0.2); BASO% 0.2 % (0.0-0.8); EOS# 0.18 X1000 (0.0-0.7); EOS% 2.1 % (0.0-10.0); HEMATOCRIT 39.3 % (37.0-47.0); HEMOGLOBIN 13.3 g/dL (12.0-16.0); IMM GRAN# 0.01 X1000 (0.0-0.04); IMM GRAN% 0.1 % (0.0-0.5); LYMPH# 2.63 X1000 (1.2-3.4); LYMPH% 30.3 % (20.5-51.1); MCH 28.9 PG (27-31); MCHC 33.8 g/dL (33-37); MCV 85.2 FL (81-99); MONO# 0.58 X1000 (0.11-0.59); MONO% 6.7 % (1.7-9.3); MPV 10.6 FL (7.4-10.4); NEUT# 5.27 X1000 (1.4-6.5); NEUT% 60.6 % (42.2-75.2); PLT 259 X1000 (130-400); RBC 4.61 XMIL (4.2-5.4); RDW 13.9 % (11.5-14.5); WBC 8.69 X1000 (4.8-10.8)
[2018-09-19 07:42] LABS: AGAP 13; BUN 12 mg/dL (8-22); CHLORIDE 106 mmol/L (98-107); COSMO 283; CREATININE 0.6 mg/dL (0.5-0.9); ESTIMATED GFR > 60; GLUCOSE 94 mg/dL (70-104); POTASSIUM 3.9 mmol/L (3.5-5.1); SODIUM 142 mmol/L (136-145); TCO2 23 mmol/L (25-35)
[2018-09-19] MEDS ORDERED: DILAUDID IV PRN (08:14)
[2018-09-19] MEDS: NEXIUM PO SCH (09:21)
--- NOTE | 2018-09-19 12:08 | PROGRESS NOTE ---
DATE: 09/19/2018 SUBJECTIVE: Patient reports that when he walks more than 2 to 3 minutes, he notices marked shortness of breath and chest discomfort. She described a sensation like a chest tightness, not really a pain, that goes to the left arm. OBJECTIVE: Vital Signs: Temperature 98.1 degrees, heart rate 71, respiratory rate 18, blood pressure 115/50, O2 saturation 99% on room air. General: This is a 52-year-old female, lying in bed, in no acute distress. Cardiovascular: S1, S2 heard. No murmurs, gallops, or rubs. Regular rate and rhythm. Respiratory: Clear bilaterally to auscultation. No work of breathing or using accessory muscles. Abdomen: Soft. Nontender to palpation. Bowel sounds present. No organomegaly. Extremities: No clubbing, cyanosis, or edema. Peripheral pulses present in both legs. Neurological: Patient alert. Oriented x3. Moves 4 extremities. LABORATORY DATA: Reviewed. ASSESSMENT AND PLAN: 1. Chest pain. Because of those symptoms of chest discomfort and now that she is complaining of dyspnea on minimal exertion, she walks 3-5 minutes and she got really short of breath and that chest pain and chest discomfort get worse, I prefer to go ahead and do an echocardiogram and also a Lexiscan stress test to see if there is anything wrong with this patient. We will continue to monitor this patient closely and continue with telemetry. So far, we have checked troponins, and they have been negative. Cardiology has been consulted. We will follow recommendations. 2. Anxiety with increased distress. We will continue to monitor. We will provide small doses of alprazolam if needed. 3. Hypertension. Blood pressure is definitely under control. We will continue with the same management. DISPOSITION: We will see what this Lexiscan test shows. cc: Landon Mack MD
--- NOTE | 2018-09-19 15:01 | ECHO REPORT ---
ORDER DATE: 09/19/2018 INTERPRETING PHYSICIAN: Dr. Decker REQUESTING PHYSICIAN: CLINICAL INDICATIONS: This is a 52-year-old female with chest pain, atypical. M-MODE MEASUREMENTS: Right ventricle: cm. Left ventricle end diastole: 3.7 cm. Left ventricle end systole: 2.3 cm. Posterior wall: 1.7 cm. Interventricular septum: 0.7 cm. Left atrium: 3.1 cm. Aortic root: 3.0 cm. SUMMARY OF 2-DIMENSIONAL IMAGIN. Left ventricular function is normal. Ejection fraction is 65%. 2. Optison was added to optimize visualization of endocardium. 3. There is no wall motion abnormality. 4. Right ventricle is normal. 5. Aortic valve looks normal. It has 3 cusps. Color flow mapping indicates mild degree of regurgitation. 6. Mitral valve looks normal. Color flow mapping indicates mild degree of regurgitation. 7. Pulse wave Doppler of mitral inflow shows reversal of the E and the A ratio. The ratio is 0.7. 8. Tissue Doppler of septal and lateral mitral annulus averages 9 cm. 9. Pulmonary venous flow is normal. 10.There is no diastolic dysfunction. 11.Tricuspid valve shows mild degree of regurgitation. 12.Inferior vena cava is at the upper limits of normal. 13.Pulmonary pressure is estimated at 29 mmHg. 14.Pulmonic valve looks normal. Color flow mapping is unremarkable. 15.There is no pericardial effusion, mass or thrombus. Clinical correlation is recommended. cc: MD Landon Macias MD
[2018-09-20] MEDS ORDERED: NEXIUM PO SCH (07:00)
[2018-09-20 07:28] LABS: BASO# 0.02 X1000 (0.0-0.2); BASO% 0.1 % (0.0-0.8); EOS# 0.18 X1000 (0.0-0.7); EOS% 1.3 % (0.0-10.0); HEMOGLOBIN 13.7 g/dL (12.0-16.0); IMM GRAN# 0.03 X1000 (0.0-0.04); IMM GRAN% 0.2 % (0.0-0.5); LYMPH# 1.93 X1000 (1.2-3.4); LYMPH% 14.3 % (20.5-51.1); MCH 28.3 PG (27-31); MCHC 33.4 g/dL (33-37); MCV 84.7 FL (81-99); MONO# 0.75 X1000 (0.11-0.59); MONO% 5.5 % (1.7-9.3); MPV 10.2 FL (7.4-10.4); NEUT# 10.63 X1000 (1.4-6.5); NEUT% 78.6 % (42.2-75.2); PLT 284 X1000 (130-400); RBC 4.84 XMIL (4.2-5.4); RDW 14.1 % (11.5-14.5); WBC 13.54 X1000 (4.8-10.8)
[2018-09-20 07:47] LABS: AGAP 14; BUN 16 mg/dL (8-22); CALCIUM 8.9 mg/dL (8.8-10.2); CHLORIDE 105 mmol/L (98-107); COSMO 285; CREATININE 0.7 mg/dL (0.5-0.9); ESTIMATED GFR > 60; GLUCOSE 102 mg/dL (70-104); POTASSIUM 4.3 mmol/L (3.5-5.1); SODIUM 142 mmol/L (136-145); TCO2 23 mmol/L (25-35)
[2018-09-20] MEDS ORDERED: LEXISCAN ONE (10:00)
[2018-09-20 15:35] VITALS: BP 111/67
--- NOTE | 2018-09-20 17:41 | Diag Imaging Result Document ---
PROCEDURE NAME: MYOCARDIAL PERF SCAN, STR/REST - 09/19/2018 STUDY: Rest/stress Lexiscan myocardial perfusion study. INDICATION: Chest pain, atypical. DESCRIPTION: The patient came into the nuclear lab and received a rest injection of technetium 99 sestamibi 12.4 mCi. Multiple views of the heart were obtained at rest. Subsequently, the patient underwent stress testing with 0.4 mg of Lexiscan injected. At peak infusion injected with technetium 99 sestamibi 33 mCi. Multiple tomographic views of the cardiac structures were obtained following completion of the protocol. SUMMARY OF THE ELECTROCARDIOGRAPH PORTION OF THE STUDY: Resting electrocardiogram shows normal sinus rhythm with a rate of 68 beats per minute. Resting blood pressure is 115/71. Resting ECG shows no significant abnormalities. During the protocol the heart rate increased to 122 beats per minute. Blood pressure went up to 135/81. ECG showed no significant changes. The patient reported some sharp chest discomfort that was present prior to having the test of moderate intensity. This did not change during the test. ECG showed no ischemic changes. Following the completion of the test, the heart rate and blood pressure returned back to their baseline. In summary, the electrocardiographic response to the infusion of Lexiscan is negative for ischemia. SUMMARY OF THE MYOCARDIAL PERFUSION PORTION OF THE STUDY: Poststress tomographic views of the left ventricle showed normal homogeneous distribution of radiotracer throughout the entire ventricular myocardium. There is no evidence of any poststress defect. The rest images showed normal perfusion. The polar plots revealed the same. There is no evidence of any inducible ischemia nor myocardial scar. The gated SPECT showed normal left ventricular systolic function with ejection fraction estimated at 79% with normal ventricular volumes and no wall motion abnormality. The lung/heart ratio is normal. TID is normal. CONCLUSION: In summary, this study shows: 1. Normal electrocardiographic response to infusion of Lexiscan. 2. Normal poststress myocardial perfusion scan. There is no scintigraphic evidence of pharmacologically induced myocardial ischemia. 3. Normal left ventricular systolic function. Ejection fraction is 79%. No wall motion abnormality. Clinical correlation is recommended. cc: MD Landon Macias MD
--- NOTE | 2018-09-21 14:48 | DISCHARGE SUMMARY ---
ADMISSION DATE: 09/18/2018 DISCHARGE DATE: 09/20/2018 CONSULTATIONS: None. PERTINENT PROCEDURES: Chest CT: No evidence of acute pathology. Echocardiogram: Shows an EF of 65%. No wall motion abnormality. Lexiscan: Normal. No evidence of induced myocardial ischemia. No wall motion abnormality. DISCHARGE DIAGNOSES: 1. Chest pain, rule out myocardial infarction. The patient has a normal echocardiogram, as well as normal stress test. Multiple sets of negative cardiac enzymes. Will be discharged back home to follow up with her primary care provider. 2. Anxiety with increased distress. The patient while admitted was given as needed Xanax. 3. Hypertension, controlled. HOSPITAL COURSE: Briefly, Ms. Ruvalcaba is a 52-year-old female, who presented to [facility] ER with complaints of chest pain at the top of her left breast that began radiating down her left arm with numbness to her fingers. States that she had increased stress with her children through DHR issues and had been arguing with her significant other recently, and that is when her chest pain began. Her workup revealed 4 sets of cardiac enzymes which were negative. She has had a normal echocardiogram, as well as a negative Lexiscan, and she will be discharged back home today to follow up with her primary care provider. VITAL SIGNS: At time of discharge, temperature is 98.1 degrees, heart rate 75, respirations 18, blood pressure 111/67, O2 is 97% on room air. DISCHARGE DIET: Healthy heart. DISCHARGE MEDICATIONS: 1. Flexeril 10 mg p.o. q, 12 hours p.r.n. 2. Spiro 7.5/325 p.o. as directed p.r.n. 3. Nexium 40 mg p.o. daily. FOLLOWUP: Ms. Ruvalcaba is being discharged back home with self care. She is to follow up with the primary care provider of her choosing to elicit provider to her. She can return to the ED or call 911 for any worsening of symptoms. Dictated by ELENI Montoya for Hakan Castillo MD cc: Hakan Castillo MD
--- NOTE | 2018-09-21 15:03 | DISCHARGE SUMMARY ---
ADMISSION DATE: 09/17/2018 DISCHARGE DATE: 09/20/2018 ADDENDUM: Patient seen and examined by myself. Full note dictated and discussed with nurse practitioner. On discharge, patient is awake, alert, currently in no distress. She did undergo a stress test today after being ruled out for NM. Stress test was negative. Most likely, her chest pain and shortness of breath due to her anxiety, which by her own admission, she notes gets worse any time she gets nervous. We will discharge her home. She will follow up with her primary care/. cc: Hakan Castillo MD
== END 2018-09-20 19:12 | disposition home or self-care (01) | DRG 880 ==
LOC: P.ED 18:07 → P.MEDSURG 21:37 → SUATTDRO 21:37
PROVIDERS: ATTEND Family Medicine
CPT/HCPCS: 71020; 71046; 71250; 78452; 80048; 80053; 81001; 81003; 82550; 83880; 84484; 85025; 85610; 85730; 87088; 93005; 93017; 93306; 94761; 99285; A9270; A9500; C8929; J1170; J2785; Q9957